=== PATIENT | female | born 1995 | race Caucasian/White ===

== ENCOUNTER 2018-05-30 15:28 | Emergency (ER) | payer OTHER ==
[2018-05-30 16:06] VITALS: BP 125/82
--- NOTE | 2018-05-30 16:30 | UC ---
Upper Extremity HPI - HPI Summary HPI Summary: pain began while doing push ups over an extended period of time . pain has persisted for the last several hours - History of Current Complaint Chief Complaint: UCUpperExtremity Stated Complaint: LEFT SHOULDER COMPLAINT Time Seen by Provider: 05/30/18 16:09 Hx Obtained From: Patient Hx Last Menstrual Period: 05/06/18 ?: No Onset/Duration: Sudden Onset Severity Initially: Moderate Severity Currently: Moderate Pain Intensity: 6 Location Of Pain: Is Discrete @ Character: Aching Aggravating Factor(s): Movement, Abduction Alleviating Factor(s): Ice, Rest Associated Signs And Symptoms: Positive: Negative - Risk Factors Non-Orthopedic Risk Factor: Negative DVT Risk Factors: Negative Septic Arthritis Risk Factor: Negative - Allergies/Home Medications Allergies/Adverse Reactions: Allergies Allergy/AdvReac Type Severity Reaction Status Date / Time No Known Allergies Allergy Verified 05/30/18 16:01 PMH/Surg Hx/FS Hx/Imm Hx Previously Healthy: Yes - Surgical History Surgical History: None - Family History Known Family History: Positive: None - Social History Alcohol Use: Occasionally Substance Use Type: None Smoking Status (MU): Never Smoked Tobacco - Immunization History Hx Tetanus, Diphtheria Vaccination: Yes Vaccination Up to Date: Yes Review of Systems Constitutional: Negative Skin: Negative Eyes: Negative ENT: Negative Respiratory: Negative Cardiovascular: Negative Gastrointestinal: Negative Genitourinary: Negative Motor: Other - pain on abduction and internal rotation of the right shoulder Musculoskeletal: Decreased ROM Neurological: Negative Psychological: Negative Is Patient Immunocompromised?: No All Other Systems Reviewed And Are Negative: Yes Physical Exam Triage Information Reviewed: Yes Appearance: Well-Appearing Vital Signs: Initial Vital Signs Temp 37.3 C 05/30/18 16:02 Pulse 77 05/30/18 16:02 Resp 17 05/30/18 16:02 BP 125/82 05/30/18 16:02 Pulse Ox 100 05/30/18 16:02 Vital Signs Reviewed: Yes Eye Exam: Normal Eyes: Positive: Conjunctiva Clear ENT Exam: Normal ENT: Positive: Normal ENT inspection Neck exam: Normal Neck: Positive: Supple Respiratory: Positive: Chest non-tender Cardiovascular Exam: Normal Cardiovascular: Positive: RRR Abdominal Exam: Normal Musculoskeletal Exam: Other - pain on abduction and internal rotation, pain on testing of the biceps tendon Musculoskeletal: Positive: Strength Intact - normal strength hand, wrist, sensory exam normal normal intrinsic muscles of the hands, ROM Intact Skin Exam: Normal Discharge - Discharge Plan Referrals: SHAW Schuler [Primary Care Provider] -
--- NOTE | 2018-05-30 16:50 | RAD ---
INDICATION: Left shoulder pain after doing pushups COMPARISON: None. TECHNIQUE: 4 views of the left shoulder were obtained. FINDINGS: The adequately corticated bones are in normal alignment. Joint spaces appear maintained. No fracture, dislocation or focal bony abnormality is seen. IMPRESSION: Normal radiograph of the left shoulder. If the patient's symptoms persist, follow-up imaging is recommended.
== END 2018-05-30 16:51 | disposition home or self-care (01) ==
LOC: UCCORT 15:28
DX: M25.512 Pain in left shoulder (principal); M25.511 Pain in right shoulder
CPT/HCPCS: 99212; G0463

== ENCOUNTER 2020-01-10 12:33 | Emergency (ER) | payer BC ==
[2020-01-10 13:44] VITALS: BP 128/78
--- NOTE | 2020-01-10 14:14 | UC ---
Eye Complaint HPI - HPI Summary HPI Summary: 24-year-old female presents with onset of redness and swelling to her right upper eyelid that started yesterday. Denies fever, chills, injury, eye pain, eye redness, discharge, visual disturbances, photophobia, or URI symptoms. - History of Current Complaint Chief Complaint: UCEye Stated Complaint: RT EYE CONCERN Time Seen by Provider: 01/10/20 13:53 Hx Obtained From: Patient Hx Last Menstrual Period: "last week" Pain Intensity: 6 - Allergies/Home Medications Allergies/Adverse Reactions: Allergies Allergy/AdvReac Type Severity Reaction Status Date / Time No Known Allergies Allergy Verified 01/10/20 13:39 Home Medications: Home Medications Desogestrel-Ethinyl Estradiol [Isibloom 28 Day Tablet] 1 each PO DAILY 01/10/20 [History Confirmed 01/10/20] PMH/Surg Hx/FS Hx/Imm Hx Previously Healthy: Yes - Denies significant PMH - Surgical History Surgical History: Yes Surgery Procedure, Year, and Place: Right ACL, ~2017, [place]; Rhinoplasties s/p Fractures, ~2010 ~2009, [place] - Family History Known Family History: Positive: Non-Contributory - Social History Occupation: Employed Full-time Lives: With Family Alcohol Use: Occasionally Substance Use Type: None Smoking Status (MU): Never Smoked Tobacco - Immunization History Hx Tetanus, Diphtheria Vaccination: Yes Vaccination Up to Date: Yes Review of Systems All Other Systems Reviewed And Are Negative: Yes Constitutional: Negative: Fever, Chills Skin: Negative: Rash Eyes: Positive: Other - See HPI. Negative: Blurred Vision, Diplopia, Drainage, Eye Redness, Photophobia ENT: Positive: Negative Respiratory: Positive: Negative Cardiovascular: Positive: Negative Gastrointestinal: Positive: Negative Genitourinary: Positive: Negative Musculoskeletal: Positive: Negative Neurological/Mental Status: Positive: Negative Is Patient Immunocompromised?: No Physical Exam - Summary Physical Exam Summary: GENERAL APPEARANCE: Well developed, well nourished, alert and cooperative, and appears to be in no acute distress. EYES: Erythema and mild edema of the right upper eyelid. Conjunctiva clear. No drainage. PERRL, EOM intact. Vision is grossly intact. EARS: External auditory canals and tympanic membranes clear, hearing grossly intact. NOSE: No nasal discharge. THROAT: Pharynx normal. No tonsilar inflammation, swelling, exudate, or lesions. Uvula midline. NECK: Neck supple, non-tender without lymphadenopathy. CARDIAC: Normal S1 and S2. No S3, S4 or murmurs. Rhythm is regular. There is no peripheral edema, cyanosis or pallor. Extremities are warm and well perfused. Capillary refill is less than 2 seconds. Peripheral pulses intact. LUNGS: Clear to auscultation without rales, rhonchi, wheezing or diminished breath sounds. ABDOMEN: Positive bowel sounds. Soft, nondistended, nontender. No guarding or rebound. No masses or hepatosplenomegally. MUSKULOSKELETAL: ROM intact to all extremities. No joint erythema or tenderness. Normal muscular development. Normal gait. SKIN: Skin normal color, texture and turgor with no lesions or eruptions. Triage Information Reviewed: Yes Vital Signs: Initial Vital Signs Temp 98.7 F 01/10/20 13:38 Pulse 90 01/10/20 13:38 Resp 16 01/10/20 13:38 BP 128/78 01/10/20 13:38 Pulse Ox 100 01/10/20 13:38 Vital Signs Reviewed: Yes Eye Complaint Course/Dx - Course Course Of Treatment: 24-year-old female presents with onset of redness and swelling to her right upper eyelid that started yesterday. Denies fever, chills, injury, eye pain, eye redness, discharge, visual disturbances, photophobia, or URI symptoms. Afebrile. Vital signs stable. Patient had mild erythema and edema of the right upper eyelid is to do with an internal hordeolum. Clear conjunctiva, no drainage, vision grossly intact, and otherwise unremarkable exam. Discussed findings with the patient and recommending symptomatic treatment at this time including hot packing and NSAIDs. She is to follow-up with ophthalmology in 3 days if symptoms are not improving. Anticipatory guidance warning symptoms reviewed with the patient. Verbalizes understanding and agrees with plan of care. - Differential Dx/Diagnosis Differential Diagnosis/HQI/PQRI: Conjunctivitis, Corneal Abrasion, Periorbital Cellulitis, Orbital Cellulitis Provider Diagnosis: Internal hordeolum of right eye Discharge ED - Sign-Out/Discharge Documenting (check all that apply): Patient Departure All imaging exams completed and their final reports reviewed: No Studies - Discharge Plan Condition: Stable Disposition: HOME Patient Education Materials: Tiffanie (ED) Referrals: Ney Buchanan PA [Primary Care Provider] - Silvia SILVEIRA,Leticia [Medical Doctor] - 3 Days (Follow up in 3-5 days if no improvement. Call for appointment.) Additional Instructions: Your history and exam are consistent with a stye of the right upper eyelid. Apply a hot moist compress to the eye for 15 minuted 3-4 times a day. Take ibuprofen 600 mg every 8 hours as needed for pain. Follow up with ophthalmology in 3 days if symptoms are not improving. Seek immediate medical attention in the emergency room if you develop fever greater than 100.5 F, have severe eye pain, visual disturbances, increased swelling around the eye, or any worsening of symptoms. - Billing Disposition and Condition Condition: STABLE Disposition: Home
== END 2020-01-10 14:19 | disposition home or self-care (01) ==
LOC: UCCORT 12:33
DX: H00.011 Hordeolum externum right upper eyelid (principal)
CPT/HCPCS: 99212; G0463